=== PATIENT | female | born 1980 | race African-American/Black ===

== ENCOUNTER 2016-08-18 09:08 | Emergency (ER) | payer MEDICAID, OTHER ==
--- NOTE | 2016-08-18 10:03 | ER Document Report ---
ED General - General Chief Complaint: Hand Pain Stated Complaint: FINGER PAIN Mode of Arrival: Ambulatory Information source: Patient Notes: 36 yr old female presents with complaints of right thumb pain after injury while playing with son. pt denies any neuro deficits. TRAVEL OUTSIDE OF THE [place] IN LAST 30 DAYS: No - HPI Onset: Yesterday Onset/Duration: Sudden Quality of pain: Achy Severity: Mild Pain Level: 1 Associated symptoms: Body/muscle aches Exacerbated by: Movement Relieved by: Denies Similar symptoms previously: No Recently seen / treated by doctor: No - Related Data Allergies/Adverse Reactions: No Known Allergies Allergy (Verified 08/18/16 09:12) Past Medical History - Social History Smoking Status: Never Smoker Cigarette use (# per day): No Chew tobacco use (# tins/day): No Smoking Education Provided: No Frequency of alcohol use: None Drug Abuse: None Family History: Reviewed & Not Pertinent Patient has suicidal ideation: No Patient has homicidal ideation: No Renal/ Medical History: Denies: Hx Peritoneal Dialysis Past Surgical History: Reports: Hx Breast Surgery, Hx Section - x3 - Immunizations Hx Diphtheria, Pertussis, Tetanus Vaccination: Yes Review of Systems - Review of Systems Notes: REVIEW OF SYSTEMS: CONSTITUTIONAL : Denies fever, chills, or sweats. Denies recent illness. EENT: Denies eye, ear, throat, or mouth pain or symptoms. Denies nasal or sinus congestion or discharge. Denies throat, tongue, or mouth swelling or difficulty swallowing. CARDIOVASCULAR: Denies chest pain. Denies palpitations or racing or irregular heart beat. Denies ankle edema. RESPIRATORY: Denies cough, cold, or chest congestion. Denies shortness of breath, difficulty breathing, or wheezing. GASTROINTESTINAL: Denies abdominal pain or distention. Denies nausea, vomiting , or diarrhea. Denies blood in vomitus, stools, or per rectum. Denies black, tarry stools. Denies constipation. GENITOURINARY: Denies difficulty urinating, painful urination, burning, frequency, blood in urine, or discharge. FEMALE GENITOURINARY: Denies vaginal bleeding, heavy or abnormal periods, irregular periods. Denies vaginal discharge or odor. MUSCULOSKELETAL: Admits to left hand first digit pain SKIN: Denies rash, lesions or sores. HEMATOLOGIC : Denies easy bruising or bleeding. LYMPHATIC: Denies swollen, enlarged glands. NEUROLOGICAL: Denies confusion or altered mental status. Denies passing out or loss of consciousness. Denies dizziness or lightheadedness. Denies headache. Denies weakness or paralysis or loss of use of either side. Denies problems with gait or speech. Denies sensory loss, numbness, or tingling. Denies seizures. PSYCHIATRIC: Denies anxiety or stress. Denies depression, suicidal ideation, or homicidal ideation. ALL OTHER SYSTEMS REVIEWED AND NEGATIVE. Dictation was performed using [employer] voice recognition software PHYSICAL EXAMINATION: GENERAL: Well-appearing, well-nourished and in no acute distress. HEAD: Atraumatic, normocephalic. EYES: Pupils equal round extraocular movements intact, conjunctiva are normal. ENT: Nares patent NECK: Normal range of motion LUNGS: No respiratory distress Musculoskeletal: Tenderness at the base of the first digit no obvious deformity NEUROLOGICAL: Normal speech, normal gait. PSYCH: Normal mood, normal affect. SKIN: Warm, Dry, normal turgor, no rashes or lesions noted. Physical Exam - Vital signs Vitals: Temp Pulse Resp BP Pulse Ox 97.8 F 83 16 143/86 H 99 08/18/16 09:13 08/18/16 09:13 08/18/16 09:13 08/18/16 09:13 08/18/16 09:13 Course - Re-evaluation Re-evalutation: 08/18/16 10:03 Patient has probable strain however she does have some snuffbox tenderness, x- rays pending at this time 08/18/16 10:48 X-ray noted no acute abnormality, patient will be placed in a thumb spica is otherwise stable for discharge to follow-up with orthopedics in one week After performing a Medical Screening Examination, I estimate there is LOW risk for INTRACRANIAL HEMORRHAGE, UNSTABLE SPINE FRACTURE, CENTRAL CORD SYNDROME, CAUDA EQUINA, THORACIC AORTIC DISSECTION, PNEUMOTHORAX, PERFORATED BOWEL, RUPTURED ABDOMINAL AORTIC ANEURYSM, ACUTE TENDON RUPTURE, COMPARTMENT SYNDROME, or OPEN FRACTURE, thus I consider the discharge disposition reasonable. Also, there is no evidence or peritonitis, sepsis, or toxicity. The patient and I have discussed the diagnosis and risks, and we agree with discharging home to follow-up with their primary doctor with the understanding that symptoms and presentations can change. We also discussed returning to the Emergency Department immediately if new or worsening symptoms occur. We have discussed the symptoms which are most concerning (e.g., bloody stool, fever, changing or worsening pain, vomiting) that necessitate immediate return. - Vital Signs Vital signs: Temp Pulse Resp BP Pulse Ox 97.8 F 83 16 143/86 H 99 08/18/16 09:13 08/18/16 09:13 08/18/16 09:13 08/18/16 09:13 08/18/16 09:13 - Diagnostic Test Radiology reviewed: Image reviewed, Reports reviewed Procedures - Immobilization Left Thumb Time completed: 10:48 Pre-Proc Neuro Vasc Exam: Normal Immobilizer type: Finger splint (Static) Performed by: PCT Post-Proc Neuro Vasc Exam: Normal Alignment checked and good: Yes Discharge - Discharge Clinical Impression: Thumb injury Qualifiers: Encounter type: initial encounter Laterality: left Qualified Code(s): S69.92XA - Unspecified injury of left wrist, hand and finger(s), initial encounter Condition: Stable Disposition: HOME, SELF-CARE Instructions: Sprained Thumb ([facility]) Referrals: OLYA BROOKE MD [Primary Care Provider] - Follow up as needed KAYKAY SINCLAIR MD [ACTIVE STAFF] - Follow up in 3-5 days
[2016-08-18 11:25] VITALS: BP 131/88
== END 2016-08-18 11:19 | disposition home or self-care (01) ==
LOC: ER 09:08
DX: S69.92XA Unspecified injury of left wrist, hand and finger(s), initial encounter (principal); X58.XXXA Exposure to other specified factors, initial encounter; M79.1 Myalgia
CPT/HCPCS: 99283

== ENCOUNTER 2017-04-04 08:23 | Emergency (ER) | payer MEDICAID ==
[2017-04-04] MEDS ORDERED: HYDROCODONE/ACETAMINOPHEN 5-325 MG TABLET PO ONE (08:39)
--- NOTE | 2017-04-04 08:39 | ER Document Report ---
ED Fall - General Chief Complaint: Fall Injury Stated Complaint: FALL/RIGHT FOOT INJURY Time Seen by Provider: 04/04/17 08:34 Mode of Arrival: Ambulatory Information source: Patient Notes: Patient is a 37-year-old female who presents to the ER today for right ankle pain after falling down a set of [address] to work this morning. Patient states that she felt a pop in the front of her right ankle. 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 She admits to pain only in the front of the right ankle. She denies any numbness or tingling or pain anywhere else. TRAVEL OUTSIDE OF THE [place] IN LAST 30 DAYS: No - Related data Allergies/Adverse Reactions: No Known Allergies Allergy (Verified 04/04/17 08:32) Past Medical History - General Information source: Patient - Social History Smoking Status: Unknown if Ever Smoked Family History: Reviewed & Not Pertinent Patient has suicidal ideation: No Patient has homicidal ideation: No Renal/ Medical History: Denies: Hx Peritoneal Dialysis Past Surgical History: Reports: Hx Breast Surgery, Hx Section - x3 - Immunizations Hx Diphtheria, Pertussis, Tetanus Vaccination: Yes Review of Systems - Review of Systems Constitutional: No symptoms reported EENT: No symptoms reported Cardiovascular: No symptoms reported Respiratory: No symptoms reported Gastrointestinal: No symptoms reported Genitourinary: No symptoms reported Female Genitourinary: No symptoms reported Musculoskeletal: No symptoms reported Skin: See HPI Hematologic/Lymphatic: No symptoms reported Neurological/Psychological: No symptoms reported Physical Exam - Vital signs Vitals: Temp Pulse Resp BP Pulse Ox 97.4 F 86 12 134/84 H 95 04/04/17 08:29 04/04/17 08:29 04/04/17 08:29 04/04/17 08:29 04/04/17 08:29 - Notes Notes: PHYSICAL EXAMINATION: GENERAL: Uncomfortable appearing, but in no acute distress. HEAD: Atraumatic, normocephalic. EYES: Pupils equal round and reactive to light, extraocular movements intact, sclera anicteric, conjunctiva are normal. NECK: Normal range of motion, supple without lymphadenopathy LUNGS: CTAB and equal. No wheezes rales or rhonchi. HEART: Regular rate and rhythm without murmurs EXTREMITIES: Normal range of motion but with pain to anterior right ankle, tender to palpation, no pitting edema. No cyanosis. NEUROLOGICAL: Cranial nerves grossly intact. Normal sensory/motor exams. PSYCH: Normal mood, normal affect. SKIN: Warm, Dry, normal turgor, no rashes or lesions noted Course - Re-evaluation Re-evalutation: 04/04/17 09:32 Ankle x-ray negative for any acute pathology, patient placed in Diogo wrap and given crutches. - Vital Signs Vital signs: Temp Pulse Resp BP Pulse Ox 97.4 F 86 12 134/84 H 95 04/04/17 08:29 04/04/17 08:29 04/04/17 08:29 04/04/17 08:29 04/04/17 08:29 Discharge - Discharge Clinical Impression: Ankle sprain Qualifiers: Encounter type: initial encounter Involved ligament of ankle: unspecified ligament Laterality: right Qualified Code(s): S93.401A - Sprain of unspecified ligament of right ankle, initial encounter Condition: Stable Disposition: HOME, SELF-CARE Instructions: Sprained Ankle ([facility]), Ice Packs ([facility]) Additional Instructions: Return immediately for any new or worsening symptoms. Follow up with primary care provider, call tomorrow to make followup appointment. Prescriptions: Ibuprofen [Motrin 800 mg Tablet] 800 mg PO Q8H PRN #30 tab PRN Reason: Forms: Return to Work
--- NOTE | 2017-04-04 09:21 | RADIOLOGY REPORT (SQ) ---
EXAM DESCRIPTION: ANKLE RIGHT COMPLETE COMPLETED DATE/TIME: 04/04/2017 8:53 am REASON FOR STUDY: fall, ankle pain COMPARISON: None. NUMBER OF VIEWS: Three views. TECHNIQUE: AP, lateral, and oblique radiographic images acquired of the right ankle. LIMITATIONS: None. FINDINGS: MINERALIZATION: Normal. BONES: No acute fracture or dislocation. No worrisome bone lesions. JOINTS: No effusions. SOFT TISSUES: No soft tissue swelling. No foreign body. OTHER: No other significant finding. IMPRESSION: NEGATIVE STUDY OF THE RIGHT ANKLE. NO RADIOGRAPHIC EVIDENCE OF ACUTE INJURY. TECHNICAL DOCUMENTATION: JOB ID: [id number] [employer]- All Rights Reserved
[2017-04-04 10:05] VITALS: BP 122/67
== END 2017-04-04 10:05 | disposition home or self-care (01) ==
LOC: ER 08:23
DX: S93.401A Sprain of unspecified ligament of right ankle, initial encounter (principal); W10.9XXA Fall (on) (from) unspecified stairs and steps, initial encounter
CPT/HCPCS: 99283

== ENCOUNTER 2017-07-22 12:06 | Emergency (ER) | payer MEDICAID ==
[2017-07-22] MEDS ORDERED: NORMAL SALINE 1000 ML 1,000 ML IV ONE ×2 (12:49→15:20)
[2017-07-22] MEDS ORDERED: ONDANSETRON HCL INJ/PF 4 MG/2 ML SDV IV ONE (12:49)
--- NOTE | 2017-07-22 12:53 | ER Document Report ---
ED Medical Screen (RME) - General Chief Complaint: Dizziness Stated Complaint: DIZZY, NAUSEA Time Seen by Provider: 07/22/17 12:48 Mode of Arrival: Ambulatory Information source: Patient TRAVEL OUTSIDE OF THE [place] IN LAST 30 DAYS: No - HPI Onset: This morning - pt states she has had dizziness and nausea since this am. Is a borderline diabetic and has been on steroids causing her FSBS to rise - Related Data Allergies/Adverse Reactions: No Known Allergies Allergy (Verified 07/22/17 12:06) Past Medical History - Social History Chew tobacco use (# tins/day): No Frequency of alcohol use: None Drug Abuse: None Renal/ Medical History: Denies: Hx Peritoneal Dialysis Past Surgical History: Reports: Hx Breast Surgery, Hx Section - x3 - Immunizations Hx Diphtheria, Pertussis, Tetanus Vaccination: Yes Physical Exam - Vital signs Vitals: Temp Pulse Resp BP Pulse Ox 99.2 F 121 H 20 142/86 H 98 07/22/17 12:16 07/22/17 12:16 07/22/17 12:16 07/22/17 12:16 07/22/17 12:16 Course - Vital Signs Vital signs: Temp Pulse Resp BP Pulse Ox 99.2 F 121 H 20 142/86 H 98 07/22/17 12:16 07/22/17 12:16 07/22/17 12:16 07/22/17 12:16 07/22/17 12:16
[2017-07-22 13:22] LABS: ABSOLUTE BASOPHILS # (AUTO) 0.1 10^3/uL (0.0-0.2); ABSOLUTE EOSINOPHILS # (AUTO) 0.1 10^3/uL (0.0-0.6); ABSOLUTE LYMPHOCYTES (AUTO) 2.1 10^3/uL (0.5-4.7); ABSOLUTE MONOCYTES (AUTO) 0.5 10^3/uL (0.1-1.4); ABSOLUTE NEUT (AUTO) 6.6 10^3/uL (1.7-8.2); BASOPHILS % (AUTO) 0.6 % (0-2); EOSINOPHILS % (AUTO) 0.8 % (0-6); HEMATOCRIT 36.4 % (36.0-47.0); LYMPHOCYTES % (AUTO) 22.4 % (13-45); MEAN CORPUSCULAR HEMOGLOBIN 25.9 pg (27.0-33.4); MEAN CORPUSCULAR HGB CONC 33.1 g/dL (32.0-36.0); MEAN CORPUSCULAR VOLUME 78 fl (80-97); MONOCYTES % (AUTO) 5.1 % (3-13); PLATELET COUNT 246 10^3/uL (150-450); RED BLOOD COUNT 4.65 10^6/uL (3.72-5.28); RED CELL DISTRIBUTION WIDTH 15.6 % (11.5-14.0); SEGMENTED NEUTROPHILS % (AUTO) 71.1 % (42-78); TOTAL CELLS COUNTED % (AUTO) 100 %; WHITE BLOOD COUNT 9.3 10^3/uL (4.0-10.5)
[2017-07-22 13:35] LABS: APPEARANCE,URINE SLIGHTLY-CLOUDY; BILIRUBIN,URINE NEGATIVE (NEGATIVE); COLOR,URINE YELLOW; GLUCOSE, URINE >=500 mg/dL (NEGATIVE); KETONES,URINE 80 mg/dL (NEGATIVE); LEUKOCYTE ESTERASE,URINE MODERATE (NEGATIVE); NITRITE,URINE NEGATIVE (NEGATIVE); PROTEIN,URINE 30 mg/dL (NEGATIVE); URINE SPECIFIC GRAVITY 1.027; UROBILINOGEN,URINE NEGATIVE mg/dL (<2.0)
[2017-07-22] MEDS ORDERED: MECLIZINE HCL 25 MG TABLET PO ONE (15:58)
[2017-07-22] MEDS ORDERED: CEFTRIAXONE 1 GM/D5W RTU 1 GM/50 ML RTUPB IV ONE (15:59)
--- NOTE | 2017-07-22 16:26 | ER Document Report ---
ED Dizziness/Weakness - General Chief Complaint: Dizziness Stated Complaint: DIZZY, NAUSEA Time Seen by Provider: 07/22/17 12:48 Mode of Arrival: Ambulatory Information source: Patient Notes: Patient presents with 3 day history of nausea and dizziness. Patient denies any chest pain, abdominal pain, cough, vomiting or diarrhea. Patient denies any fever. Patient states that she is borderline diabetic and has been checking her blood sugars at home using her daughter's glucometer. Patient states that over this past week and her blood sugar was 500. Patient does acknowledge increased thirst and urination. TRAVEL OUTSIDE OF THE [place] IN LAST 30 DAYS: No - HPI Patient complains to provider of: Dizziness Onset/Duration: Gradual Quality of pain: No pain Pain Level: Denies Context: Vertigo Associated symptoms: Nausea, Vertigo. 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 denies: Fever EENT: No symptoms reported. denies: Ear pain, Nose congestion, Nose discharge Cardiovascular: Lightheaded. denies: Chest pain, Palpitations Respiratory: No symptoms reported. denies: Cough, Short of breath Gastrointestinal: Nausea. denies: Abdominal pain, Diarrhea, Vomiting Genitourinary: No symptoms reported. denies: Dysuria, Flank pain Female Genitourinary: No symptoms reported Musculoskeletal: No symptoms reported. denies: Back pain Skin: No symptoms reported Hematologic/Lymphatic: No symptoms reported Neurological/Psychological: No symptoms reported. denies: Weakness Physical Exam - Vital signs Vitals: Temp Pulse Resp BP Pulse Ox 99.2 F 121 H 20 142/86 H 98 07/22/17 12:16 07/22/17 12:16 07/22/17 12:16 07/22/17 12:16 07/22/17 12:16 - General General appearance: Appears well, Alert In distress: None - HEENT Head: Normocephalic, Atraumatic Eyes: Normal Conjunctiva: Normal Nasal: Normal Mouth/Lips: Normal Mucous membranes: Normal Pharynx: Normal Neck: Normal, Supple. No: Lymphadenopathy - Respiratory Respiratory status: No respiratory distress Chest status: Nontender Breath sounds: Normal. No: Rales, Rhonchi, Stridor, Wheezing Chest palpation: Normal - Cardiovascular Rhythm: Tachycardia Heart sounds: S1 appreciated, S2 appreciated Murmur: No - Abdominal Inspection: Obese Distension: No distension Bowel sounds: Normal Tenderness: Nontender Organomegaly: No organomegaly - Back Back: Normal, Nontender. No: CVA tenderness, Vertebra tenderness - Extremities General upper extremity: Normal inspection, Nontender, Normal strength General lower extremity: Normal inspection, Nontender, Normal strength - Neurological Neuro grossly intact: Yes Cognition: Normal Lodge Coma Scale Eye Opening: Spontaneous Lodge Coma Scale Verbal: Oriented Lodge Coma Scale Motor: Obeys Commands Lodge Coma Scale Total: 15 - Psychological Associated symptoms: Normal affect, Normal mood - Skin Skin Temperature: Warm Skin Moisture: Dry Skin Color: Normal Course - Re-evaluation Re-evalutation: 07/22/17 17:37 Spoke with lab about patient's pending troponin, no labs results at this time. Lab will look for appropriate tube and run test. Patient updated regarding delay. Patient denies any chest pain, dyspnea or cough at this time. 07/22/17 18:40 Feel that patient's symptoms are related to untreated diabetes. After IV fluid hydration, patient's symptoms resolved. Patient was given meclizine. Patient does report a history of vertigo as well. Will treat patient's urinary tract infection with cephalexin. Patient educated on diabetic diet and need to monitor her blood sugar daily. No concern for cardiac cause of patient's symptoms. Patient with heart score of 2. Consulted with Dr. Garcia reviewed patient's history, diagnostic evaluation as well as EKG. Agrees with discharge plan of care, no additional testing advised at this time. 07/22/17 19:17 - Vital Signs Vital signs: Temp Pulse Resp BP Pulse Ox 97.9 F 90 18 137/91 H 99 07/22/17 16:33 07/22/17 16:33 07/22/17 16:33 07/22/17 16:33 07/22/17 16:33 - Laboratory Result Diagrams: 07/22/17 13:14 07/22/17 16:05 Laboratory results interpreted by me: 07/22/17 07/22/17 07/22/17 12:55 13:14 14:52 MCV 78 L MCH 25.9 L RDW 15.6 H Sodium Glucose POC Glucose 238 H Urine Protein 30 H Urine Glucose (UA) >=500 H Urine Ketones 80 H Urine Blood MODERATE H Ur Leukocyte Esterase MODERATE H Urine Ascorbic Acid 20 H 07/22/17 16:05 MCV MCH RDW Sodium 135.4 L Glucose 249 H POC Glucose Urine Protein Urine Glucose (UA) Urine Ketones Urine Blood Ur Leukocyte Esterase Urine Ascorbic Acid 07/22/17 18:41 Labs- Entire Visit 07/22/17 07/22/17 07/22/17 12:55 13:14 13:14 WBC 9.3 RBC 4.65 Hgb 12.0 Hct 36.4 MCV 78 L MCH 25.9 L MCHC 33.1 RDW 15.6 H Plt Count 246 Seg Neutrophils % 71.1 Lymphocytes % 22.4 Monocytes % 5.1 Eosinophils % 0.8 Basophils % 0.6 Absolute Neutrophils 6.6 Absolute Lymphocytes 2.1 Absolute Monocytes 0.5 Absolute Eosinophils 0.1 Absolute Basophils 0.1 Sodium Cancelled Potassium Cancelled Chloride Cancelled Carbon Dioxide Cancelled Anion Gap Cancelled BUN Cancelled Creatinine Cancelled Est GFR ( Amer) Cancelled Est GFR (Non-Af Amer) Cancelled Glucose Cancelled POC Glucose Calcium Cancelled Total Bilirubin Cancelled Direct Bilirubin Cancelled Neonat Total Bilirubin Cancelled Neonat Direct Bilirubin Cancelled Neonat Indirect Bili Cancelled AST Cancelled ALT Cancelled Alkaline Phosphatase Cancelled Creatine Kinase Cancelled CK-MB (CK-2) Troponin I Total Protein Cancelled Albumin Cancelled Urine Color YELLOW Urine Appearance SLIGHTLY-CLOUDY Urine pH 5.0 Ur Specific Watson 1.027 Urine Protein 30 H Urine Glucose (UA) >=500 H Urine Ketones 80 H Urine Blood MODERATE H Urine Nitrite NEGATIVE Urine Bilirubin NEGATIVE Urine Urobilinogen NEGATIVE Ur Leukocyte Esterase MODERATE H Urine WBC (Auto) 51 Urine RBC (Auto) 4 Urine Bacteria (Auto) 1+ Squamous Epi Cells Auto 7 Urine Mucus (Auto) FEW Urine Ascorbic Acid 20 H Urine HCG, Qual NEGATIVE 07/22/17 07/22/17 07/22/17 13:14 14:52 16:05 WBC RBC Hgb Hct MCV MCH MCHC RDW Plt Count Seg Neutrophils % Lymphocytes % Monocytes % Eosinophils % Basophils % Absolute Neutrophils Absolute Lymphocytes Absolute Monocytes Absolute Eosinophils Absolute Basophils Sodium 135.4 L Potassium 4.1 Chloride 100 Carbon Dioxide 26 Anion Gap 9 BUN 11 Creatinine 0.64 Est GFR ( Amer) > 60 Est GFR (Non-Af Amer) > 60 Glucose 249 H POC Glucose 238 H Calcium 9.6 Total Bilirubin 0.5 Direct Bilirubin 0.4 Neonat Total Bilirubin Not Reportable Neonat Direct Bilirubin Not Reportable Neonat Indirect Bili Not Reportable AST 29 ALT 45 Alkaline Phosphatase 65 Creatine Kinase 86 CK-MB (CK-2) Cancelled Troponin I Cancelled Total Protein 7.5 Albumin 4.0 Urine Color Urine Appearance Urine pH Ur Specific Watson Urine Protein Urine Glucose (UA) Urine Ketones Urine Blood Urine Nitrite Urine Bilirubin Urine Urobilinogen Ur Leukocyte Esterase Urine WBC (Auto) Urine RBC (Auto) Urine Bacteria (Auto) Squamous Epi Cells Auto Urine Mucus (Auto) Urine Ascorbic Acid Urine HCG, Qual 07/22/17 17:40 WBC RBC Hgb Hct MCV MCH MCHC RDW Plt Count Seg Neutrophils % Lymphocytes % Monocytes % Eosinophils % Basophils % Absolute Neutrophils Absolute Lymphocytes Absolute Monocytes Absolute Eosinophils Absolute Basophils Sodium Potassium Chloride Carbon Dioxide Anion Gap BUN Creatinine Est GFR ( Amer) Est GFR (Non-Af Amer) Glucose POC Glucose Calcium Total Bilirubin Direct Bilirubin Neonat Total Bilirubin Neonat Direct Bilirubin Neonat Indirect Bili AST ALT Alkaline Phosphatase Creatine Kinase CK-MB (CK-2) < 0.22 Troponin I < 0.012 Total Protein Albumin Urine Color Urine Appearance Urine pH Ur Specific Watson Urine Protein Urine Glucose (UA) Urine Ketones Urine Blood Urine Nitrite Urine Bilirubin Urine Urobilinogen Ur Leukocyte Esterase Urine WBC (Auto) Urine RBC (Auto) Urine Bacteria (Auto) Squamous Epi Cells Auto Urine Mucus (Auto) Urine Ascorbic Acid Urine HCG, Qual - Diagnostic Test Radiology reviewed: Reports reviewed Discharge - Discharge Clinical Impression: Dehydration Diabetes Qualifiers: Diabetes mellitus type: type 2 Diabetes mellitus complication status: with hyperglycemia Diabetes mellitus ferry terminal agent insulin use: without ferry terminal agent use Qualified Code(s): E11.65 - Type 2 diabetes mellitus with hyperglycemia UTI (urinary tract infection) Qualifiers: Urinary tract infection type: site unspecified Hematuria presence: with hematuria Qualified Code(s): N39.0 - Urinary tract infection, site not specified Condition: Stable Disposition: HOME, SELF-CARE Instructions: Cephalexin ([facility]), Dehydration ([facility]), Diabetes ([facility]), Glucophage ( [facility]), Meclizine ([facility]), Urinary Tract Infection ([facility]), Vertigo ([facility]) Additional Instructions: Return immediately for any new or worsening symptoms Followup with your primary care provider, call tomorrow to make a followup appointment Stay well-hydrated Continue to monitor your blood sugar Eat a diabetic diet Prescriptions: Blood-Glucose Meter, Drum-Type [Accu-Chek] 1 each MC BID #1 kit Cephalexin Monohydrate [Keflex 500 mg Capsule] 500 mg PO Q6H 5 Days capsule Meclizine HCl [Antivert 25 mg Tablet] 25 mg PO ASDIR PRN #12 tablet PRN Reason: Metformin HCl [Glucophage 500 mg Tablet] 500 mg PO BID #60 tablet Forms: Return to Work Referrals: ABDIAS ANDERSEN PA-C [NO LOCAL MD] - Follow up tomorrow
[2017-07-22] MEDS ORDERED: CEFTRIAXONE SODIUM 1,000 MG in NORMAL SALINE 50 ML IV ONE (17:00)
[2017-07-22 17:06] LABS: ALANINE AMINOTRANSFERASE 45 U/L (9-52); ALKALINE PHOSPHATASE 65 U/L (38-126); ANION GAP 9 (5-19); ASPARTATE AMINO TRANSFERASE 29 U/L (14-36); BILIRUBIN,DIRECT 0.4 mg/dL (0.0-0.4); BILIRUBIN,TOTAL 0.5 mg/dL (0.2-1.3); BLOOD UREA NITROGEN 11 mg/dL (7-20); CALCIUM 9.6 mg/dL (8.4-10.2); CARBON DIOXIDE 26 mmol/L (22-30); CHLORIDE 100 mmol/L (98-107); CREATINE KINASE 86 U/L (30-135); GLUCOSE 249 mg/dL (75-110); POTASSIUM 4.1 mmol/L (3.6-5.0); SODIUM 135.4 mmol/L (137-145); TOTAL PROTEIN 7.5 g/dL (6.3-8.2)
[2017-07-22 18:34] LABS: CREATINE KINASE MB < 0.22 ng/mL (<4.55); TROPONIN I < 0.012 ng/mL
[2017-07-22] MEDS ORDERED: METFORMIN HCL 500 MG TABLET PO ONE (18:40)
[2017-07-22 19:23] VITALS: BP 132/68
--- NOTE | 2017-07-22 22:38 | EKG REPORT ---
SEVERITY:- BORDERLINE ECG - SINUS TACHYCARDIA BORDERLINE T ABNORMALITIES, INFERIOR LEADS : Confirmed by: Brook Arrieta 22-Jul-2017 22:38:30
== END 2017-07-22 19:23 | disposition home or self-care (01) ==
LOC: ER 12:06
DX: E11.65 Type 2 diabetes mellitus with hyperglycemia (principal); N39.0 Urinary tract infection, site not specified; R31.9 Hematuria, unspecified; E86.0 Dehydration; R42 Dizziness and giddiness; R11.0 Nausea; Z87.891 Personal history of nicotine dependence
CPT/HCPCS: 93005; 99284; 96361; 96375; 96365; 36415; 87086; 82553; 82962; 82550; 85025; 81025; 87088; 80053; 81001; 84484; 87186; 93010; J0696; J2405; J3490; J7030

== ENCOUNTER 2017-08-16 09:47 | Emergency (ER) | payer MEDICAID ==
--- NOTE | 2017-08-16 10:13 | ER Document Report ---
ED Medical Screen (RME) - General Chief Complaint: Chest Pain Stated Complaint: CHEST PAIN Time Seen by Provider: 08/16/17 10:10 Notes: Patient says her chest "hurts" since yesterday evening. Says it only hurts when she leans to the left. Does not hurt when she leans back or to the right. Does not hurt for her to twist or take a deep breath. Pain is isolated to the left upper chest and does not go into her arm. Has never had this before. Denies any recent cough or cold or chest congestion. Denies recent fever. Has been "fine, other than this pain. Patient did move a box yesterday, but did not feel as if it was painful to do so. PMH: NIDDM, C-sections 3, breast reduction surgery. Non-smoker TRAVEL OUTSIDE OF THE [place] IN LAST 30 DAYS: No - Related Data Allergies/Adverse Reactions: No Known Allergies Allergy (Verified 08/16/17 09:47) Past Medical History - Social History Chew tobacco use (# tins/day): No Frequency of alcohol use: None Drug Abuse: None Endocrine Medical History: Reports: Hx Diabetes Mellitus Type 2 - Borderline Renal/ Medical History: Denies: Hx Peritoneal Dialysis Past Surgical History: Reports: Hx Breast Surgery, Hx Section - x3 - Immunizations Hx Diphtheria, Pertussis, Tetanus Vaccination: Yes Physical Exam - Vital signs Vitals: Temp Pulse Resp BP Pulse Ox 97.9 F 98 18 136/87 H 100 08/16/17 09:59 08/16/17 09:59 08/16/17 09:59 08/16/17 09:59 08/16/17 09:59 Course - Vital Signs Vital signs: Temp Pulse Resp BP Pulse Ox 97.9 F 98 18 136/87 H 100 08/16/17 09:59 08/16/17 09:59 08/16/17 09:59 08/16/17 09:59 08/16/17 09:59
--- NOTE | 2017-08-16 10:39 | RADIOLOGY REPORT (SQ) ---
EXAM DESCRIPTION: CHEST PA/LAT COMPLETED DATE/TIME: 08/16/2017 10:24 am REASON FOR STUDY: Left upper anterior chest pain COMPARISON: 02/20/2016 EXAM PARAMETERS: NUMBER OF VIEWS: two views TECHNIQUE: Digital Frontal and Lateral radiographic views of the chest acquired. RADIATION DOSE: NA LIMITATIONS: none FINDINGS: LUNGS AND PLEURA: No opacities, masses or pneumothorax. No pleural effusion. MEDIASTINUM AND HILAR STRUCTURES: No masses or contour abnormalities. HEART AND VASCULAR STRUCTURES: Heart normal size. No evidence for failure. BONES: No acute findings. HARDWARE: None in the chest. OTHER: No other significant finding. IMPRESSION: NO SIGNIFICANT RADIOGRAPHIC FINDING IN THE CHEST. TECHNICAL DOCUMENTATION: JOB ID: [id number] [employer]- All Rights Reserved Reading location - IP/workstation name: [email or web address]
[2017-08-16 10:44] LABS: ABSOLUTE EOSINOPHILS # (AUTO) 0.1 10^3/uL (0.0-0.6); ABSOLUTE LYMPHOCYTES (AUTO) 2.2 10^3/uL (0.5-4.7); ABSOLUTE MONOCYTES (AUTO) 0.3 10^3/uL (0.1-1.4); ABSOLUTE NEUT (AUTO) 5.4 10^3/uL (1.7-8.2); BASOPHILS % (AUTO) 0.3 % (0-2); EOSINOPHILS % (AUTO) 1.6 % (0-6); HEMATOCRIT 34.9 % (36.0-47.0); HEMOGLOBIN 11.3 g/dL (12.0-15.5); LYMPHOCYTES % (AUTO) 27.3 % (13-45); MEAN CORPUSCULAR HEMOGLOBIN 25.6 pg (27.0-33.4); MEAN CORPUSCULAR HGB CONC 32.4 g/dL (32.0-36.0); MEAN CORPUSCULAR VOLUME 79 fl (80-97); PLATELET COUNT 249 10^3/uL (150-450); RED BLOOD COUNT 4.41 10^6/uL (3.72-5.28); RED CELL DISTRIBUTION WIDTH 15.5 % (11.5-14.0); SEGMENTED NEUTROPHILS % (AUTO) 66.8 % (42-78); TOTAL CELLS COUNTED % (AUTO) 100 %
[2017-08-16 10:56] LABS: ALANINE AMINOTRANSFERASE 43 U/L (9-52); ALBUMIN 4.2 g/dL (3.5-5.0); ALKALINE PHOSPHATASE 56 U/L (38-126); ANION GAP 14 (5-19); ASPARTATE AMINO TRANSFERASE 22 U/L (14-36); BILIRUBIN,DIRECT 0.1 mg/dL (0.0-0.4); BILIRUBIN,TOTAL 0.2 mg/dL (0.2-1.3); BLOOD UREA NITROGEN 12 mg/dL (7-20); CALCIUM 9.3 mg/dL (8.4-10.2); CARBON DIOXIDE 24 mmol/L (22-30); CHLORIDE 103 mmol/L (98-107); CREATINE KINASE 80 U/L (30-135); GLUCOSE 120 mg/dL (75-110); POTASSIUM 4.3 mmol/L (3.6-5.0); SODIUM 140.8 mmol/L (137-145); TOTAL PROTEIN 7.1 g/dL (6.3-8.2)
[2017-08-16 11:15] LABS: CREATINE KINASE MB < 0.22 ng/mL (<4.55); TROPONIN I < 0.012 ng/mL
[2017-08-16] MEDS ORDERED: KETOROLAC TROMETHAMINE 10 MG TABLET PO ONE (11:23)
--- NOTE | 2017-08-16 11:23 | ER Document Report ---
ED General - General Chief Complaint: Chest Pain Stated Complaint: CHEST PAIN Time Seen by Provider: 08/16/17 10:10 Mode of Arrival: Ambulatory Information source: Patient Notes: 37-year-old female presents with complaints of left anterior chest wall pain only when she stands and bends in certain direction. Patient states otherwise she has no pain, she states if she stands up and side bends to the left that she will have pinpoint tenderness. Patient states that she thinks this may be gastric reflux. She denies any fevers or chills denies any nausea vomiting or diarrhea Patient denies any DVT PE risk factors denies any cardiac concerns at early age and family history TRAVEL OUTSIDE OF THE [place] IN LAST 30 DAYS: No - HPI Onset: Yesterday Onset/Duration: Sudden, Intermittent Quality of pain: Sharp Severity: Mild Pain Level: 1 Associated symptoms: Body/muscle aches Exacerbated by: Movement Relieved by: Denies Similar symptoms previously: No Recently seen / treated by doctor: No - Related Data Allergies/Adverse Reactions: No Known Allergies Allergy (Verified 08/16/17 09:47) Past Medical History - Social History Smoking Status: Never Smoker Cigarette use (# per day): No Chew tobacco use (# tins/day): No Smoking Education Provided: No Frequency of alcohol use: None Drug Abuse: None Family History: DM Patient has suicidal ideation: No Patient has homicidal ideation: No Endocrine Medical History: Reports: Hx Diabetes Mellitus Type 2 - Borderline Renal/ Medical History: Denies: Hx Peritoneal Dialysis Past Surgical History: Reports: Hx Breast Surgery, Hx Section - x3 - Immunizations Hx Diphtheria, Pertussis, Tetanus Vaccination: Yes Review of Systems - Review of Systems Notes: REVIEW OF SYSTEMS: CONSTITUTIONAL : Denies fever, chills, or sweats. Denies recent illness. EENT: Denies eye, ear, throat, or mouth pain or symptoms. Denies nasal or sinus congestion or discharge. Denies throat, tongue, or mouth swelling or difficulty swallowing. CARDIOVASCULAR: Denies chest pain. Denies palpitations or racing or irregular heart beat. Denies ankle edema. RESPIRATORY: Denies cough, cold, or chest congestion. Denies shortness of breath, difficulty breathing, or wheezing. GASTROINTESTINAL: Denies abdominal pain or distention. Denies nausea, vomiting , or diarrhea. Denies blood in vomitus, stools, or per rectum. Denies black, tarry stools. Denies constipation. GENITOURINARY: Denies difficulty urinating, painful urination, burning, frequency, blood in urine, or discharge. FEMALE GENITOURINARY: Denies vaginal bleeding, heavy or abnormal periods, irregular periods. Denies vaginal discharge or odor. MUSCULOSKELETAL: Admits to chest wall pain SKIN: Denies rash, lesions or sores. HEMATOLOGIC : Denies easy bruising or bleeding. LYMPHATIC: Denies swollen, enlarged glands. NEUROLOGICAL: Denies confusion or altered mental status. Denies passing out or loss of consciousness. Denies dizziness or lightheadedness. Denies headache. Denies weakness or paralysis or loss of use of either side. Denies problems with gait or speech. Denies sensory loss, numbness, or tingling. Denies seizures. PSYCHIATRIC: Denies anxiety or stress. Denies depression, suicidal ideation, or homicidal ideation. ALL OTHER SYSTEMS REVIEWED AND NEGATIVE. PHYSICAL EXAMINATION: GENERAL: Well-appearing, well-nourished and in no acute distress. HEAD: Atraumatic, normocephalic. EYES: Pupils equal round and reactive to light, extraocular movements intact, conjunctiva are normal. ENT: Nares patent, oropharynx clear without exudates. Moist mucous membranes. NECK: Normal range of motion, supple without lymphadenopathy LUNGS: Breath sounds clear to auscultation bilaterally and equal. No wheezes rales or rhonchi. HEART: Regular rate and rhythm without murmurs ABDOMEN: Soft, nontender, nondistended abdomen. No guarding, no rebound. No masses appreciated. Female : deferred Musculoskeletal: Normal range of motion, no pitting or edema. No cyanosis. NEUROLOGICAL: Cranial nerves grossly intact. Normal speech, normal gait. Normal sensory, motor exams PSYCH: Normal mood, normal affect. SKIN: Warm, Dry, normal turgor, no rashes or lesions noted. Dictation was performed using [employer] voice recognition software Physical Exam - Vital signs Vitals: Temp Pulse Resp BP Pulse Ox 97.9 F 98 18 136/87 H 100 08/16/17 09:59 08/16/17 09:59 08/16/17 09:59 08/16/17 09:59 08/16/17 09:59 Course - Re-evaluation Re-evalutation: 08/16/17 15:24 Patient's pain is only reproducible when she side bends when standing, notes when she side bends while sitting it does not cause pain. Otherwise she looks well is in no distress workup was negative After performing a Medical Screening Examination, I estimate there is LOW risk for RUPTURED ESOPHAGUS, PNEUMOTHORAX, PULMONARY EMBOLISM, ACUTE CORONARY SYNDROME, OR THORACIC AORTIC DISSECTION, thus I consider the discharge disposition reasonable. I have reevaluated this patient multiple times and no significant life threatening changes are noted. The patient and I have discussed the diagnosis and risks, and we agree with discharging home with close follow-up. We also discussed returning to the Emergency Department immediately if new or worsening symptoms occur. We have discussed the symptoms which are most concerning (e.g., bloody sputum, worsening pain or shortness of breath) that necessitate immediate return. - Vital Signs Vital signs: Temp Pulse Resp BP Pulse Ox 97.6 F 89 16 127/78 H 98 08/16/17 11:39 08/16/17 11:39 08/16/17 11:39 08/16/17 11:39 08/16/17 11:39 - Laboratory Result Diagrams: 08/16/17 10:16 08/16/17 10:16 Laboratory results interpreted by me: 08/16/17 08/16/17 10:16 10:16 Hgb 11.3 L Hct 34.9 L MCV 79 L MCH 25.6 L RDW 15.5 H Glucose 120 H - Diagnostic Test Radiology reviewed: Image reviewed, Reports reviewed Radiology results interpreted by me: 08/16/17 15:25 no acute abnormality Discharge - Discharge Clinical Impression: Chest wall pain Condition: Stable Disposition: HOME, SELF-CARE Instructions: Chest Wall Pain ([facility]), Chest Pain of Unclear Cause ([facility]) Additional Instructions: Follow up with your physician tomorrow for further care or return to the ED IMMEDIATELY if symptoms worsen or new concerns occur. If you cannot afford to follow up with your primary care physician a list of low cost clinics have been provided at the end of your discharge papers as well.
[2017-08-16 11:40] VITALS: BP 127/78
--- NOTE | 2017-08-16 17:58 | EKG REPORT ---
SEVERITY:- BORDERLINE ECG - SINUS RHYTHM BORDERLINE T ABNORMALITIES, INFERIOR LEADS : Confirmed by: Parviz Nixon MD 16-Aug-2017 17:58:09
== END 2017-08-16 11:41 | disposition home or self-care (01) ==
LOC: ER 09:47
DX: R07.89 Other chest pain (principal)
CPT/HCPCS: 93005; 99285; 36415; 82553; 82550; 85025; 80053; 84484; 71046; 93010; J3490

== ENCOUNTER 2017-09-05 21:42 | Emergency (ER) | payer MEDICAID ==
[2017-09-05 21:50] VITALS: BP 136/83
[2017-09-05] MEDS ORDERED: LIDOCAINE 2% VISCOUS SOLN 20 ML UDCUP PO ONE (22:16)
--- NOTE | 2017-09-05 22:19 | ER Document Report ---
HPI - HPI Pain Level: 5 Notes: Patient is a 37-year-old female with no significant past medical history who presents to the ED complaining of left lower dental pain #191 day. Patient states that she does have a dentist, but they are not open this weekend. She has not noticed any obvious swelling or discharge. Patient states that she is still able to eat and drink without any difficulties. She is urinating normally and having normal bowel movements. Patient is aware that she has poor dentition throughout. She denies any drug allergies. Denies any smoking or IV drug use. Denies any headache, fever, head injury, neck pain, drooling, hoarseness, URI, sore throat, chest pain, palpitations, syncope, cough, shortness of breath, wheeze, dyspnea, abdominal pain, nausea/vomiting/diarrhea, urinary retention, dysuria, hematuria, or rash. - ROS Systems Reviewed and Negative: Yes All other systems reviewed and negative - REPRODUCTIVE LMP: na Reproductive: DENIES: : Past Medical History - Social History Smoking Status: Never Smoker Chew tobacco use (# tins/day): No Frequency of alcohol use: None Drug Abuse: None Family History: DM Patient has suicidal ideation: No Patient has homicidal ideation: No Endocrine Medical History: Reports: Hx Diabetes Mellitus Type 2 - Borderline Renal/ Medical History: Denies: Hx Peritoneal Dialysis Past Surgical History: Reports: Hx Breast Surgery, Hx Section - x3 - Immunizations Hx Diphtheria, Pertussis, Tetanus Vaccination: Yes Vertical Provider Document - CONSTITUTIONAL Agree With Documented VS: Yes Notes: PHYSICAL EXAMINATION: GENERAL: Well-appearing, well-nourished and in no acute distress. HEAD: Atraumatic, normocephalic. EYES: Pupils equal round and reactive to light, extraocular movements intact, sclera anicteric, conjunctiva are normal. ENT: EAC clear b/l. TM's intact b/l without erythema, fluid, or perforation. Nares patent and without discharge. oropharynx clear without exudates. No tonsilar hypertrophy or erythema. Moist mucous membranes. No sinus tenderness. Uvula midline. No palatine shift. No tongue protrusion. No respiratory compromise. Mouth: Poor dentition. + severe decay and mild gingivitis. No obvious abscess or discharge noted. No facial swelling. + tenderness to tooth #19. NECK: Normal range of motion, supple without lymphadenopathy. No rigidity/ meningismus. LUNGS: Breath sounds clear to auscultation bilaterally and equal. No wheezes rales or rhonchi. HEART: Regular rate and rhythm without murmurs, rubs, gallops. NEUROLOGICAL: Cranial nerves grossly intact. Normal speech, normal gait. Normal sensory, motor exams PSYCH: Normal mood, normal affect. SKIN: Warm, Dry, normal turgor, no rashes or lesions noted. - INFECTION CONTROL TRAVEL OUTSIDE OF THE [place] IN LAST 30 DAYS: No Course - Re-evaluation Re-evalutation: 09/05/17 22:18 Patient is an afebrile, well-hydrated, 37-year-old female who presents to the ED with dental pain to #19, suspect nerve root etiology versus infection. Vitals are acceptable. PE is otherwise unremarkable. No labs or imaging warranted at this time based on H&P. Patient received lidocaine today as well as a prescription to go home with for penicillin. Low suspicion for any meningitis, sepsis, peritonsillar/pharyngeal abscess, respiratory compromise, Amandeep's, temporal arteritis, or other emergent systemic condition at this time. Patient is aware this condition can change from initial presentation and she needs to monitor symptoms closely. Conservative measures otherwise for symptoms. Call to schedule an appointment with a dentist for further evaluation and management. Recheck with your PCM this week as well. Return to the ED with any worsening/concerning symptoms otherwise as reviewed in discharge. Patient is in agreement. - Vital Signs Vital signs: Temp Pulse Resp BP Pulse Ox 97.9 F 79 18 136/83 H 99 09/05/17 21:48 09/05/17 21:48 09/05/17 21:48 09/05/17 21:48 09/05/17 21:48 Discharge - Discharge Clinical Impression: Pain, dental Condition: Stable Disposition: HOME, SELF-CARE Instructions: Toothache ([facility]), Penicillin V K ([facility]) Additional Instructions: [place] and floss twice daily Maintain fluid intake Take antibiotics as directed Mouthwash, salt water gargles, peroxide rinse as needed Tylenol/ibuprofen as needed Recheck with PCM this week Call today/tomorrow and schedule an appointment with your dentist for further evaluation Return to the ED with any worsening symptoms and/or development of fever, headache, facial swelling, swelling of lips/tongue/throat, trouble swallowing, drooling, hoarseness, neck pain/stiffness, chest pain, palpitations, syncope, shortness of breath, trouble breathing, abdominal pain, n/v/d, numbness/tingling , or other worsening symptoms that are concerning to you. Prescriptions: Penicillin V Potassium [Penicillin Vk 250 mg Tablet] 500 mg PO BID #40 tablet Forms: Elevated Blood Pressure Referrals: [facility] [Provider Group] - Follow up as needed
== END 2017-09-05 22:30 | disposition home or self-care (01) ==
LOC: ER 21:42
DX: K02.9 Dental caries, unspecified (principal); K05.10 Chronic gingivitis, plaque induced; K08.89 Other specified disorders of teeth and supporting structures
CPT/HCPCS: 99282; J3490

== ENCOUNTER 2018-01-06 10:21 | Emergency (ER) | payer MEDICAID ==
[2018-01-06] MEDS ORDERED: ACETAMINOPHEN 325 MG TABLET PO ONE (10:28)
[2018-01-06] MEDS ORDERED: NORMAL SALINE 1000 ML 1,000 ML IV ONE ×2 (10:48→11:57)
--- NOTE | 2018-01-06 10:51 | ER Document Report ---
ED Medical Screen (RME) - General TRAVEL OUTSIDE OF THE [place] IN LAST 30 DAYS: No <PASQUALE SMILEY - Last Filed: 01/06/18 10:50> <NICOLAS GARCIA - Last Filed: 01/06/18 14:39> - General Chief Complaint: Vomiting Stated Complaint: COLD SYMPTOMS Time Seen by Provider: 01/06/18 10:48 Notes: Patient began getting sick Friday on the way home here from [place]. She is complaining of pain in her right side and flank region. Nauseated. Fever. Does get UTIs easily. Patient is NIDDM. History . (PASQUALE SMILEY) - Related Data Allergies/Adverse Reactions: No Known Allergies Allergy (Verified 01/06/18 10:22) Past Medical History - Social History Chew tobacco use (# tins/day): No Frequency of alcohol use: None Drug Abuse: None Endocrine Medical History: Reports: Hx Diabetes Mellitus Type 2 Renal/ Medical History: Denies: Hx Peritoneal Dialysis Past Surgical History: Reports: Hx Breast Surgery, Hx Section - x3 - Immunizations Hx Diphtheria, Pertussis, Tetanus Vaccination: Yes <PASQUALE SMILEY - Last Filed: 01/06/18 10:50> - Vital signs Vitals: Temp Pulse Resp BP Pulse Ox 102.0 F H 170 H 18 107/82 98 01/06/18 10:26 01/06/18 10:26 01/06/18 10:26 01/06/18 10:26 01/06/18 10:26 Course - Laboratory Result Diagrams: 01/06/18 11:00 01/06/18 11:00 <NICOLAS GARCIA - Last Filed: 01/06/18 14:39> - Vital Signs Vital signs: Temp Pulse Resp BP Pulse Ox 102.0 F H 170 H 14 100/58 L 96 01/06/18 10:26 01/06/18 10:26 01/06/18 11:14 01/06/18 11:14 01/06/18 11:14 - Laboratory Laboratory results interpreted by me: 01/06/18 01/06/18 01/06/18 11:00 11:00 11:53 WBC 17.8 H Hgb 10.8 L Hct 32.4 L MCV 77 L MCH 25.7 L RDW 16.0 H Seg Neuts % (Manual) 87 H Band Neutrophils % 1 L Lymphocytes % (Manual) 5 L Abs Neuts (Manual) 15.7 H Glucose 158 H Urine Protein 100 H Urine Blood LARGE H Urine Nitrite POSITIVE H Urine Urobilinogen 4.0 H Doctor's Discharge <PASQUALE SMILEY - Last Filed: 01/06/18 10:50> <NICOLAS GARCIA - Last Filed: 01/06/18 14:39> - Discharge Clinical Impression: Pyelonephritis Condition: Good Disposition: HOME, SELF-CARE Instructions: Ciprofloxacin ([facility]), Pyelonephritis ([facility]), Rocephin ([facility]) Additional Instructions: Please return if unable to keep medications down, worsening fever, chills, uncontrolled vomiting or any other concerning symptoms. Prescriptions: Ciprofloxacin HCl [Cipro 500 mg Tablet] 500 mg PO BID 14 Days #28 tablet Ondansetron [Zofran Odt 4 mg Tablet] 4 mg PO Q6H PRN #10 tab.rapdis PRN Reason: Unresolved Nausea/Vomiting Referrals: FIDELIA PARDO FNP-C [Primary Care Provider] - Follow up as needed
[2018-01-06 11:23] LABS: HEMATOCRIT 32.4 % (36.0-47.0); HEMOGLOBIN 10.8 g/dL (12.0-15.5); MEAN CORPUSCULAR HEMOGLOBIN 25.7 pg (27.0-33.4); MEAN CORPUSCULAR HGB CONC 33.2 g/dL (32.0-36.0); MEAN CORPUSCULAR VOLUME 77 fl (80-97); PLATELET COUNT 244 10^3/uL (150-450); RED BLOOD COUNT 4.19 10^6/uL (3.72-5.28); WHITE BLOOD COUNT 17.8 10^3/uL (4.0-10.5)
--- NOTE | 2018-01-06 11:31 | ER Document Report ---
ED General - General Chief Complaint: Vomiting Stated Complaint: COLD SYMPTOMS Time Seen by Provider: 01/06/18 10:48 Notes: 37-year-old female to the emergency department chief complaint of not feeling well. Denies any abdominal pain, chest pain, vomiting, shortness of breath. [place] very dizzy and febrile. On arrival to the emergency department heart was racing. Blood pressure slightly low. Patient is laughing though and states that the last time she felt this way she was . Does not know if she is . Wants a test. Denies any vaginal discharge. No abnormal abdominal symptoms. No cough. No shortness of breath. No sore throat. TRAVEL OUTSIDE OF THE [place] IN LAST 30 DAYS: No - HPI Onset: Just prior to arrival Onset/Duration: Gradual - Related Data Allergies/Adverse Reactions: No Known Allergies Allergy (Verified 01/06/18 10:22) Past Medical History - General Information source: Patient - Social History Smoking Status: Never Smoker Chew tobacco use (# tins/day): No Frequency of alcohol use: None Drug Abuse: None Lives with: Family Family History: Reviewed & Not Pertinent, DM Patient has suicidal ideation: No Patient has homicidal ideation: No - Past Medical History Cardiac Medical History: Reports: None Endocrine Medical History: Reports: Hx Diabetes Mellitus Type 2 Renal/ Medical History: Denies: Hx Peritoneal Dialysis Past Surgical History: Reports: Hx Breast Surgery, Hx Section - x3 - Immunizations Hx Diphtheria, Pertussis, Tetanus Vaccination: Yes Review of Systems - Review of Systems Constitutional: Fever, Weakness. denies: Malaise EENT: denies: Eye discharge, Blurred vision, Ear discharge, Nose congestion, Difficulty swallowing, Throat swelling Cardiovascular: Heart racing. denies: Chest pain, Palpitations, Orthopnea, Dyspnea, Syncope, Edema Respiratory: denies: Hurts to breathe, Hemoptysis, Short of breath, Wheezing Gastrointestinal: denies: Abdominal pain, Diarrhea, Nausea, Vomiting Genitourinary: denies: Burning, Frequency, Flank pain, Hematuria Female Genitourinary: Vaginal bleeding. denies: , Vaginal discharge Musculoskeletal: denies: Back pain, Muscle pain, Leg swelling Skin: denies: Dryness, Lesions, Lumps, Rash Hematologic/Lymphatic: denies: Blood clots, Easy bleeding, Easy bruising Neurological/Psychological: denies: Confusion, Weakness, Numbness Physical Exam - Vital signs Vitals: Temp Pulse Resp BP Pulse Ox 102.0 F H 170 H 18 107/82 98 01/06/18 10:26 01/06/18 10:26 01/06/18 10:26 01/06/18 10:01/06/18 10:26 Interpretation: Normal, Tachycardic - General General appearance: Appears well, Alert - HEENT Head: Normocephalic, Atraumatic Eyes: Normal Pupils: PERRL - Respiratory Respiratory status: No respiratory distress Chest status: Nontender Breath sounds: Normal Chest palpation: Normal - Cardiovascular Rhythm: Tachycardia Heart sounds: Normal auscultation Murmur: No - Abdominal Inspection: Normal Distension: No distension Bowel sounds: Normal Tenderness: Nontender. No: Tender, Guarding, Rebound Organomegaly: No organomegaly. No: Hepatomegaly, Splenomegaly - Back Back: Normal, Nontender - Extremities General upper extremity: Normal inspection, Nontender, Normal color, Normal ROM , Normal temperature General lower extremity: Normal inspection, Nontender, Normal color, Normal ROM , Normal temperature, Normal weight bearing. No: Naye's sign - Neurological Neuro grossly intact: Yes Cognition: Normal Orientation: AAOx4 Simon Coma Scale Eye Opening: Spontaneous [place] Coma Scale Verbal: Oriented [place] Coma Scale Motor: Obeys Commands Simon Coma Scale Total: 15 Speech: Normal Motor strength normal: LUE, RUE, LLE, RLE Sensory: Normal - Psychological Associated symptoms: Normal affect, Normal mood - Skin Skin Temperature: Warm Skin Moisture: Dry Skin Color: Normal Course - Re-evaluation Re-evalutation: 01/06/18 11:56 She with fever, tachycardia but otherwise well-appearing. Patient is joking. In no acute distress. Nontoxic-appearing. Likely viral syndrome. 01/06/18 14:06 Patient with UTI. Feeling much better at this time. Antibiotics have been given. Heart rate now down to 100. Feels fine. Tolerating p.o. At this time will DC with presumptive diagnosis of pyelonephritis with an strict instructions to return if unable to keep her medications down, worsening fever, pain or other concerns. 01/06/18 14:33 - Vital Signs Vital signs: Temp Pulse Resp BP Pulse Ox 102.0 F H 170 H 14 100/58 L 96 01/06/18 10:26 01/06/18 10:26 01/06/18 11:14 01/06/18 11:14 01/06/18 11:14 - Laboratory Result Diagrams: 01/06/18 11:00 01/06/18 11:00 Laboratory results interpreted by me: 01/06/18 01/06/18 01/06/18 11:00 11:00 11:53 WBC 17.8 H Hgb 10.8 L Hct 32.4 L MCV 77 L MCH 25.7 L RDW 16.0 H Seg Neuts % (Manual) 87 H Band Neutrophils % 1 L Lymphocytes % (Manual) 5 L Abs Neuts (Manual) 15.7 H Glucose 158 H Urine Protein 100 H Urine Blood LARGE H Urine Nitrite POSITIVE H Urine Urobilinogen 4.0 H Discharge - Discharge Clinical Impression: Pyelonephritis Condition: Good Disposition: HOME, SELF-CARE Instructions: Ciprofloxacin ([facility]), Rocephin ([facility]), Pyelonephritis ([facility]) Additional Instructions: Please return if unable to keep medications down, worsening fever, chills, uncontrolled vomiting or any other concerning symptoms. Prescriptions: Ciprofloxacin HCl [Cipro 500 mg Tablet] 500 mg PO BID 14 Days #28 tablet Ondansetron [Zofran Odt 4 mg Tablet] 4 mg PO Q6H PRN #10 tab.rapdis PRN Reason: Unresolved Nausea/Vomiting Referrals: FIDELIA PARDO FNP-C [Primary Care Provider] - Follow up as needed
[2018-01-06 11:32] LABS: ALANINE AMINOTRANSFERASE 29 U/L (9-52); ALBUMIN 3.8 g/dL (3.5-5.0); ALKALINE PHOSPHATASE 67 U/L (38-126); ANION GAP 14 (5-19); ASPARTATE AMINO TRANSFERASE 21 U/L (14-36); BILIRUBIN,DIRECT 0.4 mg/dL (0.0-0.4); BILIRUBIN,TOTAL 0.9 mg/dL (0.2-1.3); BLOOD UREA NITROGEN 9 mg/dL (7-20); CALCIUM 8.9 mg/dL (8.4-10.2); CARBON DIOXIDE 22 mmol/L (22-30); CHLORIDE 102 mmol/L (98-107); GLUCOSE 158 mg/dL (75-110); LIPASE 37.4 U/L (23-300); POTASSIUM 3.9 mmol/L (3.6-5.0); SODIUM 138.4 mmol/L (137-145); TOTAL PROTEIN 7.7 g/dL (6.3-8.2)
[2018-01-06 11:44] LABS: ABSOLUTE LYMPHOCYTES# (MANUAL) 0.9 10^3/uL (0.5-4.7); ABSOLUTE MONOCYTES # (MANUAL) 1.1 10^3/uL (0.1-1.4); ABSOLUTE NEUTROPHILS# (MANUAL) 15.7 10^3/uL (1.7-8.2); BAND NEUTROPHILS % (MANUAL) 1 % (3-5); BASOPHILS % (MANUAL) 1 % (0-2); EOSINOPHILS % (MANUAL) 0 % (0-6); LYMPHOCYTES % (MANUAL) 5 % (13-45); MONOCYTES % (MANUAL) 6 % (3-13); SEGMENTED NEUTROPHILS % (MAN) 87 % (42-78); TOTAL CELLS COUNTED 100
[2018-01-06 11:46] LABS: ANISOCYTOSIS 1+; HYPOCHROMASIA SLIGHT; OVALOCYTES SLIGHT; PLATELET COMMENT ADEQUATE; POIKILOCYTOSIS SLIGHT; POLYCHROMASIA SLIGHT; TEAR DROP CELLS SLIGHT
[2018-01-06] MEDS ORDERED: KETOROLAC TROMETHAMINE INJ/PF 30 MG/1 ML SDV IV ONE (11:57)
[2018-01-06 13:00] LABS: BILIRUBIN,URINE NEGATIVE (NEGATIVE); GLUCOSE, URINE NEGATIVE (NEGATIVE); KETONES,URINE NEGATIVE (NEGATIVE); LEUKOCYTE ESTERASE,URINE NEGATIVE (NEGATIVE); NITRITE,URINE POSITIVE (NEGATIVE); PROTEIN,URINE 100 mg/dL (NEGATIVE); URINE SPECIFIC GRAVITY 1.019
[2018-01-06 13:08] LABS: APPEARANCE,URINE CLOUDY
[2018-01-06 13:11] LABS: COLOR,URINE RED
[2018-01-06] MEDS ORDERED: CEFTRIAXONE INJ 1000 MG VIAL IV ONE (13:38)
[2018-01-06 16:05] VITALS: BP 125/61
--- NOTE | 2018-01-07 00:15 | EKG REPORT ---
SEVERITY:- BORDERLINE ECG - SINUS TACHYCARDIA BORDERLINE T ABNORMALITIES, INFERIOR LEADS : Confirmed by: Corazon Russell MD 07-Jan-2018 00:15:07
== END 2018-01-06 16:09 | disposition home or self-care (01) ==
LOC: ER 10:21
DX: N12 Tubulo-interstitial nephritis, not specified as acute or chronic (principal); R11.10 Vomiting, unspecified; R53.1 Weakness; E11.9 Type 2 diabetes mellitus without complications
CPT/HCPCS: 93005; 99283; 96361; 96375; 96365; 36415; 87040; 87086; 83690; 84703; 85025; 87088; 80053; 81001; 87186; 83605; 93010; J3490; J1885; J0696; J7030

== ENCOUNTER 2018-07-19 12:20 | Emergency (ER) | payer SELFPAY ==
--- NOTE | 2018-07-19 13:13 | ER Document Report ---
ED Medical Screen (RME) - General Chief Complaint: Rash Stated Complaint: VAGINAL DISCOMFORT Time Seen by Provider: 07/19/18 13:13 Primary Care Provider: FIDELIA PARDO FNP-C [Primary Care Provider] - Follow up as needed TRAVEL OUTSIDE OF THE [place] IN LAST 30 DAYS: No - HPI Notes: 07/19/18 13:13 rash in privates - Related Data Allergies/Adverse Reactions: No Known Allergies Allergy (Verified 07/19/18 12:28) Past Medical History Endocrine Medical History: Reports: Hx Diabetes Mellitus Type 2 Renal/ Medical History: Denies: Hx Peritoneal Dialysis Past Surgical History: Reports: Hx Breast Surgery, Hx Section - x3 - Immunizations Hx Diphtheria, Pertussis, Tetanus Vaccination: Yes Physical Exam - Vital signs Vitals: Temp Pulse Resp BP Pulse Ox 98.3 F 128 H 16 142/89 H 100 07/19/18 12:38 07/19/18 12:38 07/19/18 12:38 07/19/18 12:38 07/19/18 12:38 Course - Vital Signs Vital signs: Temp Pulse Resp BP Pulse Ox 98.3 F 128 H 16 142/89 H 100 07/19/18 12:38 07/19/18 12:38 07/19/18 12:38 07/19/18 12:38 07/19/18 12:38 Doctor's Discharge - Discharge Referrals: FIDELIA PARDO FNP-C [Primary Care Provider] - Follow up as needed
--- NOTE | 2018-07-19 14:04 | ER Document Report ---
HPI - HPI Time Seen by Provider: 07/19/18 13:13 Pain Level: 2 Notes: Patient is a 38-year-old female with no significant past medical history presents emergency department complaining of a rash to her groin bilaterally that is been there over the last couple days that is pruritic in nature. Patient states that she does shave in that area and has had a rash there previously. She has not had any vaginal discharge, odor, or bleeding. She has no concern of STD or STI. Denies drug allergies. No other concerns or complaints. She is urinating normally and having normal bowel movements. Patient states that she has been trying some [id number] topical creams. Denies any headache, fever, URI, sore throat, chest pain, palpitations, syncope, cough, shortness of breath, wheeze, dyspnea, abdominal pain, nausea/vomiting/diarrhea, urinary retention, dysuria, hematuria, or rash. - ROS Systems Reviewed and Negative: Yes All other systems reviewed and negative - REPRODUCTIVE Reproductive: DENIES: : Past Medical History - Social History Smoking Status: Unknown if Ever Smoked Family History: Reviewed & Not Pertinent, DM Patient has suicidal ideation: No Patient has homicidal ideation: No Endocrine Medical History: Reports: Hx Diabetes Mellitus Type 2 Renal/ Medical History: Denies: Hx Peritoneal Dialysis Past Surgical History: Reports: Hx Breast Surgery, Hx Section - x3 - Immunizations Hx Diphtheria, Pertussis, Tetanus Vaccination: Yes Vertical Provider Document - CONSTITUTIONAL Agree With Documented VS: No - Heart rate 90 during exam Notes: PHYSICAL EXAMINATION: Accompanied by female pctirene GENERAL: Well-appearing, well-nourished and in no acute distress. LUNGS: Breath sounds clear to auscultation bilaterally and equal. No wheezes rales or rhonchi. HEART: Regular rate and rhythm without murmurs, rubs, gallops. ABDOMEN: Soft, nontender, nondistended abdomen. No guarding, no rebound. No masses appreciated. Normal bowel sounds present. No CVA tenderness bilaterally. : there is no obvious discharge, ulcerations, or lesions. There is a macular mildly erythemic moist area noted to the groins and medial thighs w/o any induration, fluctuance, or tenderness. No streaks. No obvious vaginal discharge noted. No inguinal adenopathy. Musculoskeletal: FROM to passive/active. Strength 5+/5. Extremities: No cyanosis, clubbing, or edema b/l. Peripheral pulses 2+. Capillary refill less than 3 seconds. NEUROLOGICAL: Normal speech, normal gait. Normal sensory, motor exams PSYCH: Normal mood, normal affect. SKIN: see above. - INFECTION CONTROL TRAVEL OUTSIDE OF THE [place] IN LAST 30 DAYS: No Course - Re-evaluation Re-evalutation: 07/19/18 13:59 Patient is an afebrile, well-hydrated, a 38-year-old female who presents to the emergency department with a nonspecific skin rash to her groin, suspect possible fungal infection. Vitals are acceptable without significant tachycardia, tachypnea, or hypoxia. PE is otherwise unremarkable. Patient is nontoxic- appearing and is tolerating p.o. without difficulty. No labs or imaging warranted at this time. Low suspicion for any SJS, necrotizing fasciitis, syphilis, or other systemic emergent condition at this time. Patient is aware that condition can change from initial presentation and she needs to monitor symptoms closely and seek medical attention with any acute changes. I will send her home with a prescription for clotrimazole. Recheck with your PCM in 3-5 days. Return to the ED with any other worsening/concerning symptoms as reviewed. Patient is in agreement. - Vital Signs Vital signs: Temp Pulse Resp BP Pulse Ox 98.3 F 128 H 16 142/89 H 100 07/19/18 12:38 07/19/18 12:38 07/19/18 12:38 07/19/18 12:38 07/19/18 12:38 Discharge - Discharge Clinical Impression: Rash and nonspecific skin eruption Condition: Stable Disposition: HOME, SELF-CARE Additional Instructions: Keep the skin clean and dry Avoid shaving for 2 weeks Wash with soap and water Tylenol/ibuprofen if needed Triple antibiotic ointment daily Take medication as directed Monitor for any worsening symptoms Recheck with your PCM in 3-5 days Return to the ED with any worsening symptoms and/or development of fever, headache, chest pain, palpitations, syncope, shortness of breath, trouble breathing, abdominal pain, n/v/d, abscess, purulent discharge, red streaks, worsening swelling, or other worsening symptoms that are concerning to you. Prescriptions: Clotrimazole 1% Topical [Lotrimin 1% Topical Soln 10 ml] 1 applic TP BID 14 Days #1 tube Forms: Elevated Blood Pressure Referrals: FIDELIA PARDO FNP-C [Primary Care Provider] - Follow up as needed [facility] [Provider Group] - Follow up as needed
[2018-07-19 14:37] VITALS: BP 134/79
== END 2018-07-19 14:35 | disposition home or self-care (01) ==
LOC: ER 12:20
DX: R21 Rash and other nonspecific skin eruption (principal); E11.9 Type 2 diabetes mellitus without complications
CPT/HCPCS: 99282

== ENCOUNTER 2018-08-15 02:24 | Emergency (ER) | payer SELFPAY ==
[2018-08-15] MEDS ORDERED: OXYCODONE-ACETAMINOPHEN 5-325 MG TABLET PO ONE (03:00)
[2018-08-15] MEDS ORDERED: PROMETHAZINE HCL 25 MG TABLET PO ONE (03:00)
[2018-08-15] MEDS ORDERED: CEFTRIAXONE INJ 1000 MG VIAL IM ONE (03:00)
[2018-08-15] MEDS ORDERED: LIDOCAINE 1% INJ-PF (10 MG/ML) 30 ML SDV INJ ONE (03:00)
[2018-08-15] MEDS ORDERED: SULFAMETHOXAZOLE/TRIMETHOPRIM 800-160 MG TABLET PO ONE (03:00)
[2018-08-15] MEDS ORDERED: HYDROCODONE/ACETAMINOPHEN 5-325 MG (6 TAB/ER DISP) PO PRN (03:06)
--- NOTE | 2018-08-15 03:06 | ER Document Report ---
HPI - HPI Patient complains to provider of: left middle finger pain Time Seen by Provider: 08/15/18 02:52 Pain Level: 4 Context: Patient is a 38-year-old female that comes to the emergency department for chief complaint of redness and pain to the left middle finger. She states that pain started out next to the nail, it seemed to spread to the tip of the finger, she thought they would be pus in it so she poked the area with a needle, symptoms started 3 days ago, she poked it 2 days ago, today the area became more red and painful. She has full range of motion of the finger, she states there is no purulent drainage when she poked it, she denies fever or chills. She is a diabetic. She denies any other complaints. Tetanus up-to-date within 5 years. - REPRODUCTIVE Reproductive: DENIES: : Past Medical History - General Information source: Patient - Social History Smoking Status: Never Smoker Frequency of alcohol use: None Drug Abuse: None Lives with: Family Family History: Reviewed & Not Pertinent, DM Endocrine Medical History: Reports: Hx Diabetes Mellitus Type 2 Renal/ Medical History: Denies: Hx Peritoneal Dialysis Past Surgical History: Reports: Hx Breast Surgery, Hx Section - x3 - Immunizations Immunizations up to date: Yes Hx Diphtheria, Pertussis, Tetanus Vaccination: Yes Vertical Provider Document - CONSTITUTIONAL General Appearance: WD/WN, No Apparent Distress - INFECTION CONTROL TRAVEL OUTSIDE OF THE [place] IN LAST 30 DAYS: No - HEENT HEENT: Atraumatic, Normocephalic - NECK Neck: Normal Inspection - RESPIRATORY Respiratory: Breath Sounds Normal, No Respiratory Distress - CARDIOVASCULAR Cardiovascular: Regular Rate, Regular Rhythm - GI/ABDOMEN Gastrointestinal: Abdomen Soft, Abdomen Non-Tender - BACK Back: Normal Inspection - MUSCULOSKELETAL/EXTREMETIES Musculoskeletal/Extremeties: Tender - Left middle finger with erythema at the fingertip with tenderness, tenderness is very mild, there is questionable swelling at this area. I do not appreciate any swelling along the paronychial areas, there is no open wound, the area over the finger pad is normal and nontender without swelling and no evidence of felon. There is full range of motion of the finger. Remaining hand exam is unremarkable. - NEURO Level of Consciousness: Awake, Alert, Appropriate - DERM Integumentary: Warm, Dry, No Rash Course - Re-evaluation Re-evalutation: There is evidence of early cellulitis at the tip of the finger where patient poked herself. The paronychial areas are normal. The finger pad is normal and there is no evidence of felon. There is no swelling, induration, or fluctuance suggesting abscess. There is no abnormality with range of motion, patient is afebrile, otherwise well-appearing. Patient is a diabetic. She received Rocephin IM and Bactrim here, she will be placed on both Bactrim and Keflex with instructions, follow-up instructions, and strict return precautions which I discussed in detail. Patient states understanding and agreement with plan. - Vital Signs Vital signs: Temp Pulse Resp BP Pulse Ox 98.1 F 101 H 16 141/82 H 98 08/15/18 02:28 08/15/18 02:28 08/15/18 02:28 08/15/18 02:28 08/15/18 02:28 Discharge - Discharge Clinical Impression: Cellulitis, finger Qualifiers: Laterality: left Qualified Code(s): L03.012 - Cellulitis of left finger Condition: Stable Disposition: HOME, SELF-CARE Additional Instructions: Your examination is consistent with cellulitis, and infection, in the finger. Recommend resting and elevating the hand, take the antibiotics as prescribed, perform close follow-up with your primary care provider for reevaluation. Return immediately if you worsen in any way including increased redness, increased swelling, spreading symptoms, increased pain, fever/chills, inability to bend the finger, or any other concerning or worsening symptoms. Prescriptions: Cephalexin Monohydrate [Keflex 500 mg Capsule] 500 mg PO QID #28 capsule Sulfamethoxazole/Trimethoprim [Bactrim Ds Tablet] 1 each PO BID #14 tablet Referrals: FIDELIA PARDO FNP-C [Primary Care Provider] - Follow up as needed
[2018-08-15 03:48] VITALS: BP 137/86
== END 2018-08-15 03:48 | disposition home or self-care (01) ==
LOC: ER 02:24
DX: L03.012 Cellulitis of left finger (principal); M79.645 Pain in left finger(s); E11.9 Type 2 diabetes mellitus without complications
CPT/HCPCS: 99283; 96372; J3490; J0696

== ENCOUNTER 2018-08-17 19:42 | Emergency (ER) | payer SELFPAY ==
[2018-08-17 20:07] VITALS: BP 112/90
[2018-08-17] MEDS ORDERED: HYDROCODONE/ACETAMINOPHEN 5-325 MG TABLET PO ONE (20:18)
--- NOTE | 2018-08-17 20:21 | ER Document Report ---
HPI - HPI Patient complains to provider of: Finger infection Time Seen by Provider: 08/17/18 20:08 Onset: Last week Onset/Duration: Worse Quality of pain: Achy Pain Level: 4 Context: Patient states that she has worn artificial nails and had them taken off. Patient states that she thought she was getting an infection and tried to pop the infection with a needle 3 days ago. Patient was seen in the ER 2 days ago and placed on antibiotics for finger cellulitis. Patient states since then she has been taking the medication although her finger has started to become more tender, swollen and change color. Patient denies any drainage from the wound. Associated Symptoms: denies: Fever Exacerbated by: Movement Relieved by: Denies Similar symptoms previously: No Recently seen / treated by doctor: Yes - ROS ROS below otherwise negative: Yes Systems Reviewed and Negative: Yes All other systems reviewed and negative - CONSTITUTIONAL Constitutional: DENIES: Fever, Chills - REPRODUCTIVE Reproductive: DENIES: : - MUSCULOSKELETAL Musculoskeletal: REPORTS: Extremity pain, Swelling - DERM Skin Color: Other - Yellowing of the skin of the finger Skin Problems: Pustule Past Medical History - General Information source: Patient - Social History Smoking Status: Never Smoker Frequency of alcohol use: None Drug Abuse: None Lives with: Family Family History: Reviewed & Not Pertinent, DM Patient has suicidal ideation: No Patient has homicidal ideation: No Endocrine Medical History: Reports: Hx Diabetes Mellitus Type 2 Renal/ Medical History: Denies: Hx Peritoneal Dialysis Past Surgical History: Reports: Hx Breast Surgery, Hx Section - x3 - Immunizations Immunizations up to date: Yes Hx Diphtheria, Pertussis, Tetanus Vaccination: Yes Vertical Provider Document - CONSTITUTIONAL Agree With Documented VS: Yes Exam Limitations: No Limitations General Appearance: WD/WN, No Apparent Distress - INFECTION CONTROL TRAVEL OUTSIDE OF THE [place] IN LAST 30 DAYS: No - HEENT HEENT: Atraumatic, Normocephalic - NECK Neck: Normal Inspection - RESPIRATORY Respiratory: No Respiratory Distress - CARDIOVASCULAR Pulses: Normal: Radial - MUSCULOSKELETAL/EXTREMETIES Musculoskeletal/Extremeties: MAEW, Edema - L 3rd finger tenderness, swelling to distal tip of finger - NEURO Level of Consciousness: Awake, Alert, Appropriate Motor/Sensory: No Motor Deficit - DERM Integumentary: Warm, Dry Notes: Patient with paronychia to left third finger. Patient with yellow discoloration to distal tip of finger and underneath the fingernail. No palmar swelling, no concern for failing. Course - Vital Signs Vital signs: Temp Pulse Resp BP Pulse Ox 98.5 F 99 16 112/90 H 100 08/17/18 20:06 08/17/18 20:06 08/17/18 20:06 08/17/18 20:06 08/17/18 20:06 Procedures - Incision and Drainage Left Finger 3rd digit Type: Simple I&D procedure: Shurclens applied Incision Method: Incision made with needle Amount/type of drainage: Moderate amount of purulent drainage removed from finger Hands back picture: 1 - Paronychia Discharge - Discharge Clinical Impression: Encounter for incision and drainage procedure Paronychia of finger Qualifiers: Laterality: left Qualified Code(s): L03.012 - Cellulitis of left finger Condition: Stable Disposition: HOME, SELF-CARE Instructions: Antibiotic Therapy ([facility]), Paronychia ([facility]) Additional Instructions: Return immediately for any new or worsening symptoms Followup with your primary care provider, call tomorrow to make a followup appointment Continue to take the antibiotics that you were previously prescribed Soak finger in warm soapy water at least 3 times a day Follow-up with hand specialist for any persistent pain or problems Prescriptions: Hydrocodone/Acetaminophen [[place] 5-325 mg Tablet] 1 tab PO Q6 PRN #8 tablet PRN Reason: Referrals: FIDELIA PARDO FNP-C [Primary Care Provider] - Follow up as needed SARAH GUAMAN DO [ACTIVE STAFF] - Follow up as needed
== END 2018-08-17 21:01 | disposition home or self-care (01) ==
LOC: ER 19:42
PROC: 0H9QXZZ Drainage of Finger Nail, External Approach (ICD-10-PCS; principal; 2018-08-17)
DX: L03.019 Cellulitis of unspecified finger (principal); E11.9 Type 2 diabetes mellitus without complications
CPT/HCPCS: 99283

== ENCOUNTER → 2018-09-24 | Outpatient (CLI) | payer OTHER ==
[2018-09-24 08:44] LABS: ABSOLUTE EOSINOPHILS # (AUTO) 0.1 10^3/uL (0.0-0.6); ABSOLUTE LYMPHOCYTES (AUTO) 2.1 10^3/uL (0.5-4.7); ABSOLUTE MONOCYTES (AUTO) 0.5 10^3/uL (0.1-1.4); ABSOLUTE NEUT (AUTO) 6.5 10^3/uL (1.7-8.2); BASOPHILS % (AUTO) 0.2 % (0-2); EOSINOPHILS % (AUTO) 1.3 % (0-6); HEMATOCRIT 33.4 % (36.0-47.0); LYMPHOCYTES % (AUTO) 23.2 % (13-45); MEAN CORPUSCULAR HGB CONC 32.9 g/dL (32.0-36.0); MEAN CORPUSCULAR VOLUME 76 fl (80-97); MONOCYTES % (AUTO) 5.1 % (3-13); PLATELET COUNT 324 10^3/uL (150-450); RED CELL DISTRIBUTION WIDTH 17.9 % (11.5-14.0); SEGMENTED NEUTROPHILS % (AUTO) 70.2 % (42-78); TOTAL CELLS COUNTED % (AUTO) 100 %; WHITE BLOOD COUNT 9.2 10^3/uL (4.0-10.5)
[2018-09-24 09:08] LABS: ALANINE AMINOTRANSFERASE 21 U/L (9-52); ALBUMIN 3.7 g/dL (3.5-5.0); ALKALINE PHOSPHATASE 121 U/L (38-126); ANION GAP 9 (5-19); ASPARTATE AMINO TRANSFERASE 13 U/L (14-36); BILIRUBIN,DIRECT 0.2 mg/dL (0.0-0.4); BILIRUBIN,TOTAL 0.4 mg/dL (0.2-1.3); BLOOD UREA NITROGEN 11 mg/dL (7-20); CALCIUM 9.5 mg/dL (8.4-10.2); CARBON DIOXIDE 27 mmol/L (22-30); CHLORIDE 101 mmol/L (98-107); CHOLESTEROL 109.55 mg/dL (0-200); GLUCOSE 271 mg/dL (75-110); POTASSIUM 4.2 mmol/L (3.6-5.0); SODIUM 136.6 mmol/L (137-145); TOTAL PROTEIN 7.4 g/dL (6.3-8.2); TRIGLYCERIDES 106 mg/dL (<150)
[2018-09-24 09:18] LABS: DIRECT LDL 71 mg/dL (<100)
== END ==
LOC: CCC 08:15
DX: E11.8 Type 2 diabetes mellitus with unspecified complications (principal); R03.0 Elevated blood-pressure reading, without diagnosis of hypertension
CPT/HCPCS: 36415; 80053; 80061; 83036; 84443; 85025

== ENCOUNTER 2019-08-05 12:39 | Emergency (ER) | payer OTHER ==
[2019-08-05 12:53] VITALS: BP 143/87
[2019-08-05] MEDS ORDERED: NAPROXEN 250 MG TABLET PO ONE (13:10)
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
== END 2019-08-05 14:11 | disposition home or self-care (01) ==
LOC: ER 12:39
DX: R51 Headache (principal); V89.2XXA Person injured in unspecified motor-vehicle accident, traffic, initial encounter; E11.9 Type 2 diabetes mellitus without complications